=== PATIENT | female | born 1990 | race Caucasian/White ===

== ENCOUNTER 2018-01-30 09:37 | Emergency (ER) | payer BC, OTHER ==
[2018-01-30 09:58] VITALS: BP 114/69
--- NOTE | 2018-01-30 10:32 | UC ---
Respiratory Complaint HPI - HPI Summary HPI Summary: 27-year-old woman comes to clinic today with a chief complaint of a week and a half of upper respiratory tract infection symptoms. Started out more with runny nose sore throat. The rhinorrhea has decreased. Her throat still hurts quite a bit. His like to congestion is gone down into her chest. She is bringing up some dark sputum and having shortness of breath. Cough is keeping her awake overnight. She is not a smoker. He tried some [id number] medications was helped some with the cough but overall she's worsening. - History of Current Complaint Chief Complaint: UCGeneralIllness Stated Complaint: COUGH SORE THROAT CHEST CONGESTION Time Seen by Provider: 01/30/18 10:19 Hx Last Menstrual Period: 11/26/17, irreg. Pain Intensity: 2 - Allergies/Home Medications Allergies/Adverse Reactions: Allergies Allergy/AdvReac Type Severity Reaction Status Date / Time No Known Allergies Allergy Verified 01/30/18 09:51 Home Medications: Home Medications guaiFENesin [Mucinex] 600 mg PO ONCE 01/30/18 [History Confirmed 01/30/18] PMH/Surg Hx/FS Hx/Imm Hx Previously Healthy: Yes - Surgical History Surgical History: None - Family History Known Family History: Positive: Non-Contributory - Social History Alcohol Use: Occasionally Substance Use Type: None Smoking Status (MU): Never Smoked Tobacco - Immunization History Most Recent Influenza Vaccination: none Most Recent Tetanus Shot: within 10 years Review of Systems All Other Systems Reviewed And Are Negative: Yes Constitutional: Positive: Negative Skin: Positive: Negative Eyes: Positive: Negative ENT: Positive: Sore Throat, Nasal Discharge, Sinus Congestion Respiratory: Positive: Shortness Of Breath, Cough Cardiovascular: Positive: Negative Gastrointestinal: Positive: Negative Motor: Positive: Negative Neurovascular: Positive: Negative Musculoskeletal: Positive: Negative Neurological: Positive: Negative Psychological: Positive: Negative Is Patient Immunocompromised?: No Physical Exam Triage Information Reviewed: Yes Appearance: No Pain Distress, Well-Nourished, Ill-Appearing - MILD Vital Signs: Initial Vital Signs Temp 98.9 F 01/30/18 09:53 Pulse 83 01/30/18 09:53 Resp 18 01/30/18 09:53 BP 114/69 01/30/18 09:53 Pulse Ox 100 01/30/18 09:53 Vital Signs Reviewed: Yes Eye Exam: Normal Eyes: Positive: Conjunctiva Clear ENT: Positive: Pharyngeal erythema, Nasal congestion, Nasal drainage, TMs normal , Tonsillar swelling - B/L SYMMETRIC, Uvula midline Neck exam: Normal Neck: Positive: Supple Respiratory: Positive: No respiratory distress, Rhonchi, Other: - DRY COUGH Cardiovascular: Positive: RRR Musculoskeletal Exam: Normal Musculoskeletal: Positive: Strength Intact, ROM Intact Neurological Exam: Normal Neurological: Positive: Alert, Muscle Tone Normal Psychological Exam: Normal Psychological: Positive: Age Appropriate Behavior Skin Exam: Normal UC Diagnostic Evaluation - Laboratory O2 Sat by Pulse Oximetry: 100 Respiratory Course/Dx - Differential Dx/Diagnosis Provider Diagnosis: Bronchitis with bronchospasm, Pharyngitis Discharge - Sign-Out/Discharge Documenting (check all that apply): Patient Departure All imaging exams completed and their final reports reviewed: No Studies - Discharge Plan Condition: Stable Disposition: HOME Prescriptions: Albuterol HFA INHALER* [Ventolin HFA Inhaler*] 2 puff INH Q4H PRN #1 mdi PRN Reason: Wheezing Azithromyxin JOSEPH (NF) [Z-Joseph (Zithromax) 250 mg tabs #6] 2 tab PO .TODAY, THEN 1 DAILY #6 tab Benzonatate CAP* [Tessalon 100 MG CAP*] 100 mg PO TID PRN #20 cap PRN Reason: Cough Patient Education Materials: Acute Bronchitis (ED), Bronchospasm (ED), Pharyngitis (ED) Forms: *Work Release Referrals: Adeline Benavidez MD [Primary Care Provider] - Additional Instructions: FOLLOW UP WITH YOUR DOCTOR IF NOT COMPLETELY IMPROVED. GET RECHECKED FOR ANY WORSENING OF YOUR CONDITION OR QUESTIONS OR CONCERNS. - Billing Disposition and Condition Condition: STABLE Disposition: Home
== END 2018-01-30 10:44 | disposition home or self-care (01) ==
LOC: UCEAST 09:37
DX: J20.9 Acute bronchitis, unspecified (principal); J02.9 Acute pharyngitis, unspecified
CPT/HCPCS: 99212; G0463